=== PATIENT | female | born 1960 | race African-American/Black ===

== ENCOUNTER 2018-08-21 16:34 | Emergency (ER) | payer OTHER ==
[~2018-08-21] VITALS: Ht 167.6 cm; Wt 87.5 kg
[2018-08-21 18:04] LABS: BASO # 0.1 x10^3/uL (0.0-0.2); BASO % 1 % (0-3); EOS # 0.1 x10^3/uL (0.0-0.7); EOS % 2 % (0-3); HEMATOCRIT 22.2 % (36.0-47.0); HEMOGLOBIN 7.5 g/dL (12.0-15.5); LYMPH # 2.9 x10^3/uL (1.0-4.8); LYMPH % 33 % (24-48); MEAN CORPUSCULAR HEMOGLOBIN 37 pg (25-35); MEAN CORPUSCULAR HGB CONC 34 g/dL (31-37); MEAN CORPUSCULAR VOLUME 110 fL (79-100); MONO # 0.6 x10^3/uL (0.0-1.1); MONO % 7 % (0-9); NEUT # 5.1 x10^3uL (1.8-7.7); NEUT % 57 % (31-73); PLATELET COUNT 793 x10^3/uL (140-400); RED BLOOD COUNT 2.02 x10^6/uL (3.50-5.40); RED CELL DISTRIBUTION WIDTH 17.9 % (11.5-14.5); WHITE BLOOD COUNT 8.8 x10^3/uL (4.0-11.0)
[2018-08-21 18:14] LABS: CALCIUM 9.5 mg/dL (8.5-10.1); GFR 69.1; POTASSIUM 3.3 mmol/L (3.5-5.1)
[2018-08-21] MEDS ORDERED: ACETAMINOPHEN 500 MG TABLET PO ONE (19:00)
[2018-08-21 19:20] VITALS: BP 136/61
[2018-08-21 19:55] LABS: % BANDS 5 % (0-9); % BASOS 1 % (0-3); % EOS 3 % (0-5); % LYMPHS 37 % (24-48); % MONOS 6 % (0-10); % SEGS 48 % (35-66); NUCLEATED RBC 9; PLT ESTIMATE INCREASED (ADEQUATE); POLYCHROMASIA MOD
[2018-08-21 19:56] LABS: ANISOCYTOSIS SLIGHT; SPHEROCYTES FEW
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
[2018-08-21] MEDS ORDERED: IRON1TAB2 PO (20:11)
== END 2018-08-21 20:15 | disposition home or self-care (01) ==
LOC: ER 16:34
DX: D64.89 Other specified anemias (principal); E78.00 Pure hypercholesterolemia, unspecified; I10 Essential (primary) hypertension; Z88.8 Allergy status to other drugs, medicaments and biological substances
CPT/HCPCS: 36415; 80048; 85007; 85025; 99284